=== PATIENT | female | born 1970 | race Caucasian/White ===

== ENCOUNTER → 2021-01-06 11:06 | Outpatient (CLI) | payer OTHER, SELFPAY ==
--- NOTE | ~2021-01-06 | US_ITS ---
EXAMINATION: US pelvic complete EXAM DATE: 01/06/2021 11:29 INDICATION: Menorrhagia, excessive and frequent menstruation. TECHNIQUE: Pelvic transabdominal sonogram was performed. There are multiple grayscale and Doppler im ages available for interpretation. There is no prior study for comparison. FINDINGS: Uterus measures 11.0 x 4.7 x 6.2 cm, and is morphologically normal. Endometrial stripe me asures 3 mm, within normal limits. There is no free pelvic fluid. Right adnexa: The ovary measures 3.0 x 1.4 x 2.8 cm and is morphologically normal. Ovarian vascular f low confirmed. Left adnexa: The ovary measures 2.4 x 1.7 x 4 cm and is morphologically normal. Ovarian vascular flow confirmed. IMPRESSION: 1. Unremarkable pelvic ultrasound exam. Reviewed, dictated and finalized at location B.
== END ==
PROVIDERS: PCP Family Medicine; Visit Provider Nurse Practitioner Family
DX: N92.0 Excessive and frequent menstruation with regular cycle (principal)
CPT/HCPCS: 76856